=== PATIENT | female | born 1980 | race Caucasian/White ===

== ENCOUNTER → 2020-11-05 | Outpatient (CLI) | payer OTHER ==
[~2020-11-05] MED LIST: ADVIL200 MG PO; APIDRA SOL100 UNIT/1 SQ; AUGMENTIN 875-1 EACH PO; BASAGLAR K100 UNIT/1 SC; CEFEPIME-D2 GM/50 ML IV; NAPROXEN 250 M250 MG PO; ROXICODONE TAB 55 MG PO; SYNTHROID200 MCG PO; TORADOL 10 MG T10 MG PO; ZOFRAN ODT 4 MG4 MG PO
== END ==
LOC: CT 10-03 10:30
DX: R59.1 Generalized enlarged lymph nodes (principal); K11.8 Other diseases of salivary glands
CPT/HCPCS: 36415; 70491; 82565; 84520; Q9967

== ENCOUNTER → 2020-11-13 | Outpatient (CLI) | payer OTHER | LOC: EXRD 15:29 | DX: K11.8 Other diseases of salivary glands (principal) | CPT/HCPCS: 76536 ==

== ENCOUNTER → 2020-12-17 | Outpatient (CLI) | payer OTHER | END | disposition home or self-care (01) | LOC: US 09:12 | DX: R22.1 Localized swelling, mass and lump, neck (principal) ==

== ENCOUNTER → 2021-01-28 | Outpatient (CLI) | payer OTHER | LOC: MAMO 12-30 13:30 | DX: Z12.31 Encounter for screening mammogram for malignant neoplasm of breast (principal) | CPT/HCPCS: 77063; 77067 ==

== ENCOUNTER → 2021-04-01 | Outpatient (CLI) | payer OTHER | LOC: EMI 03-31 15:15 | DX: G89.29 Other chronic pain (principal); M25.562 Pain in left knee; M25.462 Effusion, left knee; M89.9 Disorder of bone, unspecified | CPT/HCPCS: 73721 ==

== ENCOUNTER 2021-04-02 20:57 | Emergency (ER) | payer OTHER ==
[~2021-04-02] VITALS: Ht 160 cm; Wt 99.8 kg
== END 2021-04-03 03:25 | disposition home or self-care (01) ==
LOC: ER1 20:57
DX: Z23 Encounter for immunization (principal); U07.1 COVID-19; Z90.49 Acquired absence of other specified parts of digestive tract; Z88.2 Allergy status to sulfonamides; Z88.1 Allergy status to other antibiotic agents; Z88.8 Allergy status to other drugs, medicaments and biological substances
CPT/HCPCS: 71045; 99283; M0243; U0002

== ENCOUNTER → 2022-03-16 | Outpatient (CLI) | payer OTHER ==
[~2022-03-16] VITALS: Ht 160 cm; Wt 98.0 kg
== END ==
LOC: EROP 17:53
DX: U07.1 COVID-19 (principal); E11.9 Type 2 diabetes mellitus without complications; I10 Essential (primary) hypertension; Z23 Encounter for immunization
CPT/HCPCS: M0222; Q0222

== ENCOUNTER 2022-05-18 10:19 | Emergency (ER) | payer OTHER | END 2022-05-18 12:54 | disposition home or self-care (01) | LOC: ER1 10:19 | DX: S61.313A Laceration without foreign body of left middle finger with damage to nail, initial encounter (principal); S61.215A Laceration without foreign body of left ring finger without damage to nail, initial encounter; E11.9 Type 2 diabetes mellitus without complications; Z88.1 Allergy status to other antibiotic agents; Z88.8 Allergy status to other drugs, medicaments and biological substances; Z23 Encounter for immunization; W26.8XXA Contact with other sharp object(s), not elsewhere classified, initial encounter; Y92.009 Unspecified place in unspecified non-institutional (private) residence as the place of occurrence of the external cause | CPT/HCPCS: 12001; 90471; 90715; 99282 ==